=== PATIENT | female | born 1940 | race Caucasian/White ===

== ENCOUNTER → 2025-09-17 12:08 | Outpatient (REF) | payer BC, SELFPAY ==
[2025-09-17 13:47] LABS: Hematocrit 31.1 % (37.0-47.0); Hemoglobin 10.0 g/dL (12.0-16.0); Mean Corp Hgb Conc. 32.2 g/dL (33.0-37.0); Mean Corpuscular Volume 92.3 fL (81.0-99.0); Platelet Count 103 10^3/uL (130-400); Red Cell Dist. Width 15.0 % (11.5-14.5)
[2025-09-17 13:48] LABS: ALT (SGPT) 12 U/L (0-35); AST (SGOT) 22 U/L (14-36); Albumin 3.1 g/dl (3.5-5.0); Alkaline Phosphatase 101 U/L (38-126); Blood Urea Nitrogen 18 mg/dl (7-17); Calcium 8.3 mg/dl (8.4-10.2); Carbon Dioxide 31 mmol/L (22-30); Chloride 102 mmol/L (98-107); Glucose 119 mg/dl (70-99); HDL Cholesterol 52 mg/dl; LDL Cholesterol, Calculated 71 mg/dl; Potassium 3.3 mmol/L (3.5-5.1); Sodium 135 mmol/L (135-145); Total Protein 6.5 g/dl (6.3-8.2); Very Low Density Lipoprotein 16 mg/dl (0-30); eGFR > 60.00
[2025-09-17 14:19] LABS: TSH 2.19 uIU/ml (0.47-4.68)
== END ==
LOC: OLABMERCHI 12:08
PROVIDERS: ATTENDING PHYSICIAN Hospitalist
DX: R53.1 Weakness (principal); M62.84 Sarcopenia; E78.5 Hyperlipidemia, unspecified; E03.9 Hypothyroidism, unspecified
CPT/HCPCS: 36415; 80053; 80061; 84439; 84443; 85027

== ENCOUNTER → 2025-09-18 15:40 | Outpatient (REF) | payer BC, OTHER, SELFPAY ==
[2025-09-18 16:13] LABS: Urine Character Slightly Cloudy (Clear)
[2025-09-18 16:25] LABS: Urine Squamous Cell >30 /LPF (Few)
== END ==
LOC: OLABMERCHI 15:40
PROVIDERS: ATTENDING PHYSICIAN Hospitalist
DX: R53.1 Weakness (principal); M62.84 Sarcopenia; E78.5 Hyperlipidemia, unspecified; E03.0 Congenital hypothyroidism with diffuse goiter
CPT/HCPCS: 81003; 81015; 87077; 87086; 87186

== ENCOUNTER → 2025-10-15 10:39 | Outpatient (REF) | payer OTHER, SELFPAY ==
[2025-10-15 11:25] LABS: Hematocrit 35.1 % (37.0-47.0); Hemoglobin 10.7 g/dL (12.0-16.0); Mean Corp Hgb Conc. 30.5 g/dL (33.0-37.0); Mean Corpuscular Volume 97.5 fL (81.0-99.0); Nucleated Red Blood Cells % 0 %; Platelet Count 123 10^3/uL (130-400); Red Cell Dist. Width 15.8 % (11.5-14.5)
[2025-10-15 13:59] LABS: ALT (SGPT) 11 U/L (0-35); AST (SGOT) 21 U/L (14-36); Albumin 3.3 g/dl (3.5-5.0); Alkaline Phosphatase 110 U/L (38-126); Blood Urea Nitrogen 22 mg/dl (7-17); Calcium 10.1 mg/dl (8.4-10.2); Chloride 102 mmol/L (98-107); Glucose 107 mg/dl (70-99); Potassium 4.3 mmol/L (3.5-5.1); Sodium 139 mmol/L (135-145); Total Protein 6.9 g/dl (6.3-8.2); eGFR > 60.00
[2025-10-15 14:10] LABS: Carbon Dioxide 35 mmol/L (22-30)
== END ==
LOC: OLABMERCHI 10:39
PROVIDERS: ATTENDING PHYSICIAN Hospitalist
DX: I10 Essential (primary) hypertension (principal); I49.3 Ventricular premature depolarization; E78.5 Hyperlipidemia, unspecified; E03.9 Hypothyroidism, unspecified; R60.9 Edema, unspecified
CPT/HCPCS: 36415; 80053; 85025